=== PATIENT | male | born 1985 | race Caucasian/White ===

== ENCOUNTER 2016-08-17 14:57 | Inpatient (IN) | payer OTHER ==
[~2016-08-17] VITALS: Ht 185.4 cm; Wt 78.9 kg
[2016-08-17 19:35] VITALS: BP 92/60
[2016-08-17] MEDS ORDERED: oxyCODONE/APAP 7.5-325 MG (PERCOCET 7.5) TABLET ONE (20:24)
[2016-08-17] MEDS: SENNA W/DOCUSATE (SENOKOT S) TABLET PO SCH (20:30)
[2016-08-17] MEDS: oxyCODONE/APAP 7.5-325 MG (PERCOCET 7.5) TABLET PO PRN (20:30)
[2016-08-17] MEDS ORDERED: ONDANSETRON 4 MG/2 ML (SDV) Z0FRAN IVP PRN (23:30)
[2016-08-17] MEDS ORDERED: ACETAMINOPHEN 325 MG TABLET/CAPLET (TYLENOL) PO PRN (23:30)
[2016-08-17] MEDS ORDERED: BISACODYL 10 MG SUPP (DULCOLAX) PR PRN (23:30)
[2016-08-18] MEDS: oxyCODONE/APAP 7.5-325 MG (PERCOCET 7.5) TABLET PO PRN ×6 (00:42→22:37)
[2016-08-18] MEDS: LORazepam 0.5 MG (ATIVAN) TABLET PO PRN ×2 (03:47→14:00)
[2016-08-18 05:18] VITALS: BP 101/65
[2016-08-18] MEDS: PANTOPRAZOLE 40 MG (PROTONIX) TAB PO SCH (06:03)
[2016-08-18 06:20] LABS: MEAN CORPUSCULAR HEMOGLOBIN 31 PG (25-34); MEAN CORPUSCULAR HGB CONC 34 G/DL (32-36); MEAN CORPUSCULAR VOLUME 90 FL (80-99); RED BLOOD COUNT 3.74 10^6/uL (4.35-5.85); RED CELL DISTRIBUTION WIDTH 11.6 % (10.0-14.5); WHITE BLOOD COUNT 6.2 10^3/uL (4.3-11.0)
[2016-08-18 06:21] LABS: BASOPHILS % (AUTO) 0 % (0-10); EOSINOPHILS # (AUTO) 0.1 10^3/uL (0.0-0.3); EOSINOPHILS % (AUTO) 2 % (0-10); LYMPHOCYTES # (AUTO) 1.9 X 10^3 (1.0-4.0); LYMPHOCYTES % (AUTO) 31 % (12-44); MEAN PLATELET VOLUME 9.4 FL (7.4-10.4); MONOCYTES # (AUTO) 0.6 X 10^3 (0.0-1.0); MONOCYTES % (AUTO) 10 % (0-12); NEUTROPHILS # (AUTO) 3.5 X 10^3 (1.8-7.8); NEUTROPHILS % (AUTO) 57 % (42-75); PLATELET COUNT 390 10^3/uL (130-400)
[2016-08-18 07:00] LABS: ALANINE AMINOTRANSFERASE 44 U/L (0-55); ALBUMIN 3.3 G/DL (3.2-4.5); ANION GAP 7 MMOL/L (5-14); ASPARTATE AMINO TRANSFERASE 23 U/L (5-34); BILIRUBIN,TOTAL 0.4 MG/DL (0.1-1.0); BLOOD UREA NITROGEN 16 MG/DL (7-18); BUN/CREATININE RATIO 21; CALCIUM 9.2 MG/DL (8.5-10.1); CARBON DIOXIDE 28 MMOL/L (21-32); CHLORIDE 102 MMOL/L (98-107); CREATININE SERUM 0.76 MG/DL (0.60-1.30); GFR ESTIMATED > 60; GLUCOSE 90 MG/DL (70-105); POTASSIUM 4.1 MMOL/L (3.6-5.0); SODIUM 137 MMOL/L (135-145); TOTAL PROTEIN 5.8 G/DL (6.4-8.2)
[2016-08-18 07:52] LABS: BAND NEUTROPHILS 0 %; BASOPHILS % (MANUAL) 0 %; EOSINOPHILS % (MANUAL) 5 %; LYMPHOCYTES % (MANUAL) 33 %; NEUTROPHILS % (MANUAL) 57 %
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
[2016-08-18] MEDS ORDERED: ONDANSETRON 4 MG (ZOFRAN) ORAL DISSOLVE TAB PO PRN (11:00)
--- NOTE | 2016-08-18 11:12 | Occupational Ther Daily Note ---
OT Current Status-Daily Note Subjective Pt. reports that he is trying to relax. States, "I didn't sleep last night." Appearance Pt. declines out of bed activity, but agrees to education regarding back safety. Mental Status/Objective Patient Orientation: Person Functional [place] Measure 0=Not Assessed/NA 4=Minimal Assistance 1=Total Assistance 5=Supervision or Setup 2=Maximal Assistance 6=Modified [place] 3=Moderate Assistance 7=Complete [place] ADL-Treatment Functional [place] Measure 0=Not Assessed/NA 4=Minimal Assistance 1=Total Assistance 5=Supervision or Setup 2=Maximal Assistance 6=Modified [place] 3=Moderate Assistance 7=Complete IndependenceIRFPAI Quality Coding Scale 6 Independent with activity with or without an assistive device 5 Patient requires set up or clean up by helper. Patient completes activity by themselves 4 Supervision or touching assist (CGA). [place] provide cues , steadying assist 3 The helper provides less than half the effort to complete the activity 2 The helper provides more than half the effort to complete the activity 1 Dependent. The helper does all the effort to complete an activity 7 Patient refused to complete or attempt activity 9 The patient did not perform the activity before the current illness or injury 88 Not attempted due to Medical conditions or safety concerns Other Treatment Pt. asleep when OT came in room. OT wakes pt. up. Pt. declines getting up, but states that OT can give him information regarding back precautions and home safety. OT begins to educate pt on do's and don't's after back surgery. Pt. falls asleep several times more, with OT waking him up. Pt. apologizes, and states again that he just didn't get any sleep last night. Spoke with nursing about possible sleeping pill at bedtime to help him sleep, so that he can participate more. Nursing states that pt. was given an ativan, and this made him sleep. She states that he slept through nursing being in room, and did not wake up to ask for more pain medication until this morning. Pt. has been educated on importance of being able to participate in therapy. Education OT Patient Education: Correct positioning, Modified ADL techniques, Progress toward Goal/Update tx plan, Purpose of tx/functional activities, Reviewed precautions, Rehab process Teaching Recipient: Patient Teaching Methods: Demonstration, Discussion Response to Teaching: Verbalize Understanding, Return Demonstration OT Short Term Goals Short Term Goals Time Frame: August 25, 2016 Eating(FIM): 7 Grooming(FIM): 6 Bathing(FIM): 5 Upper Body Dressing(FIM): 6 Lower Body Dressing(FIM): 5 Toileting(FIM): 5 Transfers (B,C,W/C) (FIM): 5 Toilet/Commode Transfer(FIM): 5 Shower Transfer(FIM): 4 Additional Short Term Goals: 1-Demonstrate ADL Tasks, 2-Verbalize Understanding , 3-ImproveStrength/Shaan 1=Demonstrate adherence to instructed precautions during ADL tasks. 2=Patient will verbalize/demonstrate understanding of assistive devices/ modifications for ADL. 3=Patient will improve strength/tolerance for activity to enable patient to perform ADL's. OT [facility]ci Goals Environmental Tech Goals Time Frame: September 01, 2016 Eating (FIM): 7 Eating (QC): 6 Groomin Oral Hygiene (QC): 6 Bathing(FIM): 6 Shower/Bathe Self (QC): 6 Upper Body Dressing(FIM): 6 Upper Body Dressing (QC): 6 Lower Body Dressing(FIM): 6 Lower Body Dressing (QC): 6 On/Off Footwear (QC): 6 Toileting(FIM): 6 Toileting Hygiene (QC): 6 Transfers (B,C,W/C) (FIM): 6 Toilet/Commode Transfer(FIM): 6 Toilet/Commode Transfer (QC): 6 Shower Transfer(FIM): 5 Additional Goals: 1-Demonstrate ADL Tasks, 2-Verbalize Understanding, 3- ImproveStrength/Shaan 1=Demonstrate adherence to instructed precautions during ADL tasks. 2=Patient will verbalize/demonstrate understanding of assistive devices/ modifications for ADL. 3=Patient will improve strength/tolerance for activity to enable patient to perform ADL's. OT Education/Plan Problem List/Assessment Assessment: Decreased Activ Tolerance, Decreased UE Strength, Dependent Transfers, Impaired Coordination, Impaired Funct Balance, Impaired I ADL's, Impaired Self-Care Skills Discharge Recommendations Plan/Recommendations: Continue POC Therapy D/C Recommendations: Home w/ Family Support, Occupational Therapy Home Care Equpiment Recommendations-D/C: Hip Kit Treatment Plan/Plan of Care Treatment,Training & Education: Yes Patient would benefit from OT for education, treatment and training to promote independence in ADL's, mobility, safety and/or upper extremity function for ADL' s. Plan of Care: ADL Retraining, Functional Mobility, Group Exercise/Act as Ind, UE Funct Exercise/Act Treatment Duration: September 01, 2016 Visits Per Week: 10-12 Agreement: Yes Rehab Potential: Fair Time/GCodes Start Time: 10:35 Stop Time: 10:45 Total Time Billed (hr/min): 10 Billed Treatment Time 1, MILANA EVANGELISTA OT August 18, 2016 11:12
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
--- NOTE | 2016-08-18 14:41 | Occ Therapy Progress Note ---
Therapy Progress Note OT went into pt's room, for scheduled therapy. OT educated pt. on use of adaptive equipment. Pt. verbalizes understanding. OT lets pt. know it is time to practice doffing/donning sock with equipment. Pt. declines out of bed. States, "I just got my pain pill, and I have food coming." OT asks pt. purpose of not wanting to get out of bed when he has just had a pain pill, which is when his pain should be best controlled. Pt. states, "because if I start to hurt, then it will be another 4 hours until I can get my next one." OT asks when his ideal time would be for therapies. Pt. states that he would like to have all therapies, and then to have his pain medication. Pt. is reminded that this morning, he was in so much pain that he could not participate, and that when OT came back for the second time, he had had his pain medication and was too groggy, and could not stay awake for therapy. OT states again that it is very important for him to be able to participate in therapy, and that if he refuses now, he wont get all of his therapy. Pt. states that this is okay. Spoke with rehab coordinator regarding this. Pt. is not able to participate in therapy due to pain before his scheduled pain pill, and does not want to participate after his pain pill due to possible pain. [id number], MILANA MONREAL OT August 18, 2016 14:41
[2016-08-18 20:00] VITALS: BP 111/68
[2016-08-18] MEDS: SENNA W/DOCUSATE (SENOKOT S) TABLET PO SCH (20:10)
[2016-08-19] MEDS: oxyCODONE/APAP 7.5-325 MG (PERCOCET 7.5) TABLET PO PRN ×5 (02:37→21:38)
[2016-08-19 05:00] VITALS: BP 125/66
[2016-08-19] MEDS: PANTOPRAZOLE 40 MG (PROTONIX) TAB PO SCH (06:46)
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
--- NOTE | 2016-08-19 09:01 | Physical Therapy Daily Note ---
PT Daily Note-Current Subjective Patient in bed pre tx, ordering breakfast, agrees to PT, has pain of 4/10, he states it has been more controlled recently. Appearance Patient in shower chair in shower room post tx with OT. Mental Status Patient Orientation: Normal For Age CAM boot, TLSO Transfers Functional [place] Measure 0=Not Assessed/NA 4=Minimal Assistance 1=Total Assistance 5=Supervision or Setup 2=Maximal Assistance 6=Modified [place] 3=Moderate Assistance 7=Complete IndependenceIRFPAI Quality Coding Scale 6 Independent with activity with or without an assistive device 5 Patient requires set up or clean up by helper. Patient completes activity by themselves 4 Supervision or touching assist (CGA). [place] provide cues , steadying assist 3 The helper provides less than half the effort to complete the activity 2 The helper provides more than half the effort to complete the activity 1 Dependent. The helper does all the effort to complete an activity 7 Patient refused to complete or attempt activity 9 The patient did not perform the activity before the current illness or injury 88 Not attempted due to Medical conditions or safety concerns Transfers (B, C, W/C) (FIM): 5 Scootin Supine to/from Sit: 6 Sit to/from Stand: 5 still occasionally bears weight through his right arm Weight Bearing Weight Bearing Restriction: Non Weight Bearing Location Restriction: R LE, R UE Gait Training Gait (FIM): 5 Distance: 250', 150' Gait Level of Assist: 5 Gait Persons Needed: 1 Gait Assistive Device: Walker Platform patient still appears to bear weight through his right leg but states that he is not, slow, antalgic Exercises Seated Therapy Exercises: Ankle pumps, Hip flexion Seated Reps: 20 Standing: Hamstring curls, 3 way Ex=Flex, Abd, Ext toe touches with right LE, LAQ alternating for 5 min NuStep Minutes: 10 NuStep Workload: 3 Treatments bed mobility and transfers, ambulation, functional strengthening, patient was put in shower room post tx for OT, TLSO and CAM boot removed for shower and OT will cover appropriate places with plastic. Assessment Current Status: Fair Progress improving transfers and endurance PT Short Term Goals Short Term Goals Time Frame: August 25, 2016 Transfers (B,C,W/C) (FIM): 5 Gait (FIM): 5 Gait Distance Comment: 150' Gait Level of Assist: 5 Gait Assistive Device: Walker Platform Wheelchair Distance: 150' PT Placement Coordinator Goals [facility] Goals PT [facility] Goals Time Frame: September 08, 2016 Transfers (B,C,W/C) (FIM): 6 Sit to Lying (QC): 6 Lying-Sitting on Side/Bed(QC): 6 Sit to Stand (QC): 6 Rollin Roll Left to Right (QC): 6 Chair/Cjw-zx-Iyfmv Xfer(QC): 6 Car Transfer (QC): 4 Does the Patient Walk: Yes Gait (FIM): 6 Distance: 200' Walk 10 feet (QC): 6 Walk 10ft-Uneven Surface(QC): 6 Walk 50ft with 2 Turns (QC): 6 Walk 150 ft (QC): 6 Gait Assistive Device: Walker Platform Wheelchair (FIM): 6 Distance: 200' Wheelchair Level of Assist: 6 Wheel 50 feet with 2 turns (QC: 6 Stairs (FIM): 1 # of Steps: 1 1 Step (curb) (QC): 4 Stairs Level Of Assist: 5 PT Plan Problem List Problem List: Activity Tolerance, Functional Strength, Safety, Balance, Gait, Transfer Treatment/Plan Treatment Plan: Continue Plan of Care Treatment Plan: Bed Mobility, Education, Functional Activity Shaan, Functional Strength, Group Therapy, Gait, Safety, Therapeutic Exercise, Transfers Treatment Duration: September 08, 2016 Visits Per Week: 10-11 Minutes/Day (M-F): 60-90 Minutes/Day (Sat/Arriola): 15-30 Safety Risks/Education Patient Education: Gait Training, Transfer Techniques, Correct Positioning, Safety Issues Teaching Recipient: Patient Teaching Methods: Demonstration, Discussion Response to Teaching: Reinforcement Needed Time/GCodes Time In: 800 Time Out: 900 Total Billed Treatment Time: 60 Total Billed Treatment 1 visit GT 30' EX 20' FA 10' ML MCCLELLAND PT August 19, 2016 09:01
[2016-08-19] MEDS: LORazepam 0.5 MG (ATIVAN) TABLET PO PRN (09:50)
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
--- NOTE | 2016-08-19 15:26 | Therapy Group Daily Note ---
Therapy Daily Group Note Exercises LE Standing Exercise, Sit to/from Stand, UE Exercise Other/Notes Pt ambulated to OT/PT group with CGA using FWW. Group consisted of introductions , socialization, group discussions and working together, 'Family Feud" style activity, UE/LE seated exercises and inspirational words for other pt's. Pt contributed to discussions, had pertinent answers to questions. Pt was able to completed seat LE/UE exercises and fine motor skills, tolerated well. Pt required to standing in place to alleviate pain. Pt ambulated with CGA using FWW to room. After therapy, lying in bed with call light/phone in reach. Visitor present in room. All needs met in room. Start Time: 13:00 Stop Time: 14:15 Total Billed Treatment Time: 75 Total Billed Treatment 1-GRP AKBAR FRITZ August 19, 2016 15:26
[2016-08-19 18:35] VITALS: BP 112/71
[2016-08-19] MEDS: SENNA W/DOCUSATE (SENOKOT S) TABLET PO SCH (21:38)
[2016-08-20] MEDS: oxyCODONE/APAP 7.5-325 MG (PERCOCET 7.5) TABLET PO PRN ×5 (01:48→20:11)
[2016-08-20 05:00] VITALS: BP 100/59
[2016-08-20] MEDS: PANTOPRAZOLE 40 MG (PROTONIX) TAB PO SCH (06:39)
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
[2016-08-20] MEDS: NICOTINE 14 MG (NICODERM) PATCH TD SCH (09:53)
--- NOTE | 2016-08-20 11:05 | Occupational Ther Daily Note ---
OT Current Status-Daily Note Subjective Pt alert, lying in bed. Pt c/o ankle throbbing, nrsg notified. Pt agreed to therapy. Mental Status/Objective Patient Orientation: Person, Place, Time, Situation Functional [place] Measure 0=Not Assessed/NA 4=Minimal Assistance 1=Total Assistance 5=Supervision or Setup 2=Maximal Assistance 6=Modified [place] 3=Moderate Assistance 7=Complete [place] ADL-Treatment Functional [place] Measure 0=Not Assessed/NA 4=Minimal Assistance 1=Total Assistance 5=Supervision or Setup 2=Maximal Assistance 6=Modified [place] 3=Moderate Assistance 7=Complete IndependenceIRFPAI Quality Coding Scale 6 Independent with activity with or without an assistive device 5 Patient requires set up or clean up by helper. Patient completes activity by themselves 4 Supervision or touching assist (CGA). [place] provide cues , steadying assist 3 The helper provides less than half the effort to complete the activity 2 The helper provides more than half the effort to complete the activity 1 Dependent. The helper does all the effort to complete an activity 7 Patient refused to complete or attempt activity 9 The patient did not perform the activity before the current illness or injury 88 Not attempted due to Medical conditions or safety concerns Bathing (FIM): 4 (Using shower chair with cutout, grabbar and hand held shower pt was able to bath all except for L UE. Pt has brace on R LE and cast on R UE. ) Bathing Location: L Arm, R Arm, L Upper Leg, R Upper Leg, L Lower Leg ( including foot), Chest, Abdomen, Buttocks, Perineal Area Upper Body (FIM): 4 (After set up, pt is able to don/doff shirt with min A to thread R UE into shirt due to cast.) Lower Body Dressing (FIM): 4 (Min A to thread R LE into pants due to brace then CGA while pt hiked pants over hips.) Transfers (B, C, W/C) (FIM): 4 (CGA for safety when stand pivot transferring.) Shower Transfer(FIM): 4 (Using grabbar and shower chair pt is able to complete transfer with CGA.) OT Short Term Goals Short Term Goals Time Frame: August 25, 2016 Eating(FIM): 7 Grooming(FIM): 6 Bathing(FIM): 5 Upper Body Dressing(FIM): 6 Lower Body Dressing(FIM): 5 Toileting(FIM): 5 Transfers (B,C,W/C) (FIM): 5 Toilet/Commode Transfer(FIM): 5 Shower Transfer(FIM): 4 Additional Short Term Goals: 1-Demonstrate ADL Tasks, 2-Verbalize Understanding , 3-ImproveStrength/Shaan 1=Demonstrate adherence to instructed precautions during ADL tasks. 2=Patient will verbalize/demonstrate understanding of assistive devices/ modifications for ADL. 3=Patient will improve strength/tolerance for activity to enable patient to perform ADL's. OT Ct Tech Goals Ct Tech Goals Time Frame: September 01, 2016 Eating (FIM): 7 Eating (QC): 6 Groomin Oral Hygiene (QC): 6 Bathing(FIM): 6 Shower/Bathe Self (QC): 6 Upper Body Dressing(FIM): 6 Upper Body Dressing (QC): 6 Lower Body Dressing(FIM): 6 Lower Body Dressing (QC): 6 On/Off Footwear (QC): 6 Toileting(FIM): 6 Toileting Hygiene (QC): 6 Transfers (B,C,W/C) (FIM): 6 Toilet/Commode Transfer(FIM): 6 Toilet/Commode Transfer (QC): 6 Shower Transfer(FIM): 5 Additional Goals: 1-Demonstrate ADL Tasks, 2-Verbalize Understanding, 3- ImproveStrength/Shaan 1=Demonstrate adherence to instructed precautions during ADL tasks. 2=Patient will verbalize/demonstrate understanding of assistive devices/ modifications for ADL. 3=Patient will improve strength/tolerance for activity to enable patient to perform ADL's. OT Education/Plan Discharge Recommendations Plan/Recommendations: Continue POC Treatment Plan/Plan of Care Patient would benefit from OT for education, treatment and training to promote independence in ADL's, mobility, safety and/or upper extremity function for ADL' s. Plan of Care: ADL Retraining, Functional Mobility, Group Exercise/Act as Ind, UE Funct Exercise/Act Treatment Duration: September 01, 2016 Visits Per Week: 10-12 Agreement: Yes Rehab Potential: Fair Time/GCodes Start Time: 10:00 Stop Time: 11:00 Total Time Billed (hr/min): 60 Billed Treatment Time 1 visit-ADL 4 (60 min) AKBAR FRITZ August 20, 2016 11:05
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
--- NOTE | 2016-08-20 13:48 | Therapy Group Daily Note ---
Therapy Daily Group Note Exercises Fine Motor Other/Notes Pt transported to OT/PT lunch group via w/c. Lunch group consisted of socialization, recalling local history per patients, fine motor and UE skills for eating lunch. Pt was able to answer questions about own family history and interact with other patients. Pt was able to open containers/packages by self then use regular utensils to feed self. Pt did have pain/discomfort during group. Pt requested to use bathroom and fix shirt under back brace then came back to group. Pt was able to complete toileting with supervision. After group , pt lying in bed with call light/phone in reach. All needs met in room. Start Time: 12:00 Stop Time: 13:15 Total Billed Treatment Time: 75 Total Billed Treatment 1-AKBAR TAYLOR August 20, 2016 13:48
[2016-08-20] MEDS: MILK OF MAGNESIA 400 MG/5 ML 30 ML UDC PO PRN (17:13)
[2016-08-20 18:18] VITALS: BP 114/67
[2016-08-20] MEDS: SENNA W/DOCUSATE (SENOKOT S) TABLET PO SCH (20:11)
[2016-08-21] MEDS: oxyCODONE/APAP 7.5-325 MG (PERCOCET 7.5) TABLET PO PRN ×6 (00:43→23:21)
[2016-08-21 05:32] VITALS: BP 111/68
[2016-08-21] MEDS: PANTOPRAZOLE 40 MG (PROTONIX) TAB PO SCH (06:11)
[2016-08-21] MEDS: NICOTINE 14 MG (NICODERM) PATCH TD SCH (08:18)
[2016-08-21] MEDS: PATCH REMOVAL TP SCH (08:19)
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
--- NOTE | 2016-08-21 13:30 | Physical Therapy Progress Note ---
Therapy Progress Note Attmpted PT visit at 1040 am. Pt kept eyes closed and said he had already been up today with OT. Reported he hurt too bad to participate. Adam[place] refused to participate. AKBAR JEFFREY PT August 21, 2016 13:30
[2016-08-21] MEDS: LORazepam 0.5 MG (ATIVAN) TABLET PO PRN ×2 (16:20→23:21)
[2016-08-21 18:40] VITALS: BP 95/54
[2016-08-21] MEDS: SENNA W/DOCUSATE (SENOKOT S) TABLET PO SCH (21:01)
[2016-08-22] MEDS: oxyCODONE/APAP 7.5-325 MG (PERCOCET 7.5) TABLET PO PRN ×5 (04:00→22:18)
[2016-08-22 05:48] VITALS: BP 97/59
[2016-08-22] MEDS: LORazepam 0.5 MG (ATIVAN) TABLET PO PRN ×2 (07:40→13:26)
[2016-08-22] MEDS: PANTOPRAZOLE 40 MG (PROTONIX) TAB PO SCH (07:42)
[2016-08-22] MEDS: PATCH REMOVAL TP SCH (08:16)
[2016-08-22] MEDS: NICOTINE 14 MG (NICODERM) PATCH TD SCH (08:16)
[2016-08-22] MEDS ORDERED: NYSTATIN ORAL SUSP 5 ML UDC PO SCH (14:00)
[2016-08-22] MEDS ORDERED: fluCOnazole (DIFLUCAN) 10MG/ML 35ML BTL PO SCH (14:06)
[2016-08-22 18:04] VITALS: BP 96/57
[2016-08-22] MEDS: MILK OF MAGNESIA 400 MG/5 ML 30 ML UDC PO PRN (18:18)
[2016-08-22] MEDS: SENNA W/DOCUSATE (SENOKOT S) TABLET PO SCH (21:07)
[2016-08-23] MEDS: oxyCODONE/APAP 7.5-325 MG (PERCOCET 7.5) TABLET PO PRN ×2 (02:18→06:20)
[2016-08-23] MEDS: PANTOPRAZOLE 40 MG (PROTONIX) TAB PO SCH (06:20)
[2016-08-23 06:40] VITALS: BP 89/45
[2016-08-23] MEDS: NICOTINE 14 MG (NICODERM) PATCH TD SCH (08:05)
[2016-08-23] MEDS: PATCH REMOVAL TP SCH (08:06)
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
--- NOTE | 2016-08-23 10:50 | Physical Therapy Daily Note ---
PT Daily Note-Current Subjective Patient in bed pre tx, agrees to PT, has 7/10 pain. Patient has questions about his discharge planning, this therapist alerted the long term care social worker so she can go talk to him. Appearance Patient in bed post tx with nurse call, phone, tray, all needs met. Mental Status Patient Orientation: Normal For Age TLSO, CAM boot Transfers Functional [place] Measure 0=Not Assessed/NA 4=Minimal Assistance 1=Total Assistance 5=Supervision or Setup 2=Maximal Assistance 6=Modified [place] 3=Moderate Assistance 7=Complete IndependenceIRFPAI Quality Coding Scale 6 Independent with activity with or without an assistive device 5 Patient requires set up or clean up by helper. Patient completes activity by themselves 4 Supervision or touching assist (CGA). [place] provide cues , steadying assist 3 The helper provides less than half the effort to complete the activity 2 The helper provides more than half the effort to complete the activity 1 Dependent. The helper does all the effort to complete an activity 7 Patient refused to complete or attempt activity 9 The patient did not perform the activity before the current illness or injury 88 Not attempted due to Medical conditions or safety concerns Transfers (B, C, W/C) (FIM): 6 Scootin Rollin Roll Left to Right (QC): 6 Supine to/from Sit: 6 Sit to/from Stand: 6 Sit to Lying (QC): 6 Sit to Stand (QC): 6 Chair/Euv-ix-Hsqwu Xfer(QC): 6 Bed to/from Chair: 6 Gait Training Gait (FIM): 6 Distance: 500'x2, 150'x2 Walk 10 feet (QC): 6 Walk 50 ft with 2 Turns(QC): 6 Walk 150 ft (QC): 6 Walking 10ft/uneven surface-QC: 6 Gait Assistive Device: Walker Platform Patient can ambulate 500' with a platform walker with mod I over community surfaces, including 50' with at least 2 turns of 90 degrees, and 10' over an uneven surface (slopes, cracks in sidewalks, carpet, etc) Wheelchair Training Does the Pt Use a Wheelchair?: No Stair Training Stair Training: Handrails/: uses walker Stairs (FIM): 1 #of Steps: 1 1 Step (curb) (QC): 6 4 Steps (QC): 88 12 Steps (QC): 88 Stairs: Pattern: Hops Level of Assist: 6 Patient can go up and down 1 step using a platform walker with mod I. More steps are not safe to perform at this time because he is NWB on the right wrist and leg. Balance Picking up an Object (QC): 88 Exercises Standing: Hamstring curls, 3 way Ex=Flex, Abd, Ext, Marching Standing Reps: 20 LAQ alternating for 3 min Treatments ambulation, bed mobility and transfers, functional strengthening, patient also toileted for a BM with mod I Assessment Current Status: Fair Progress Patient is mod I with all mobility using a platform walker, he seems to occasionally not comply with his weight bearing status but he states that he is always compliant. Patient voices desire to discharge home [facility], and as far as mobility he is ready. Patient refused the last 10 min of his treatment due to pain, which increased steadily during treatment, he states it is about time for him to have his pain meds again. PT Short Term Goals Short Term Goals Time Frame: August 25, 2016 Transfers (B,C,W/C) (FIM): 5 Gait (FIM): 5 Gait Distance Comment: 150' Gait Level of Assist: 5 Gait Assistive Device: Walker Platform Wheelchair Distance: 150' PT Supervisor Plasma Goals Supervisor Plasma Goals PT Supervisor Plasma Goals Time Frame: September 08, 2016 Transfers (B,C,W/C) (FIM): 6 (met) Sit to Lying (QC): 6 (met) Lying-Sitting on Side/Bed(QC): 6 (met) Sit to Stand (QC): 6 (met) Rollin (met) Roll Left to Right (QC): 6 (met) Chair/Sei-kl-Kexwl Xfer(QC): 6 (met) Car Transfer (QC): 4 Does the Patient Walk: Yes Gait (FIM): 6 (met) Distance: 200' Walk 10 feet (QC): 6 (met) Walk 10ft-Uneven Surface(QC): 6 (met) Walk 50ft with 2 Turns (QC): 6 (met) Walk 150 ft (QC): 6 (met) Gait Assistive Device: Walker Platform Wheelchair (FIM): 6 Distance: 200' Wheelchair Level of Assist: 6 Wheel 50 feet with 2 turns (QC: 6 Stairs (FIM): 1 # of Steps: 1 1 Step (curb) (QC): 4 Stairs Level Of Assist: 5 PT Plan Problem List Problem List: Activity Tolerance, Functional Strength, Safety, Balance, Gait, Transfer Treatment/Plan Treatment Plan: Continue Plan of Care Treatment Plan: Bed Mobility, Education, Functional Activity Shaan, Functional Strength, Group Therapy, Gait, Safety, Therapeutic Exercise, Transfers Treatment Duration: September 08, 2016 Visits Per Week: 10-11 Minutes/Day (M-F): 60-90 Minutes/Day (Sat/Arriola): 15-30 Safety Risks/Education Patient Education: Gait Training, Transfer Techniques, Steps, Correct Positioning, Safety Issues Teaching Recipient: Patient Teaching Methods: Demonstration, Discussion Response to Teaching: Reinforcement Needed Time/GCodes Time In: 1000 Time Out: 1050 Total Billed Treatment Time: 50 Total Billed Treatment 1 visit EX 15' FA 10' GT 25' ML MCCLELLAND PT August 23, 2016 10:50
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
[2016-08-23] MEDS ORDERED: oxyCODONE/APAP 7.5-325 MG (PERCOCET 7.5) TABLET PO PRN (12:24)
[2016-08-23] MEDS ORDERED: LORazepam 0.5 MG (ATIVAN) TABLET PO PRN (12:24)
--- NOTE | 2016-08-23 13:43 | Occupational Ther Daily Note ---
OT Current Status-Daily Note Subjective Pt alert, lying in bed. Pt agreed to therapy. Pt told nurse tech that he wanted to wait on his pain meds until after his shower. Pt to discharge today. Mental Status/Objective Patient Orientation: Person, Place, Time, Situation Functional [place] Measure 0=Not Assessed/NA 4=Minimal Assistance 1=Total Assistance 5=Supervision or Setup 2=Maximal Assistance 6=Modified [place] 3=Moderate Assistance 7=Complete [place] ADL-Treatment Functional [place] Measure 0=Not Assessed/NA 4=Minimal Assistance 1=Total Assistance 5=Supervision or Setup 2=Maximal Assistance 6=Modified [place] 3=Moderate Assistance 7=Complete IndependenceIRFPAI Quality Coding Scale 6 Independent with activity with or without an assistive device 5 Patient requires set up or clean up by helper. Patient completes activity by themselves 4 Supervision or touching assist (CGA). [place] provide cues , steadying assist 3 The helper provides less than half the effort to complete the activity 2 The helper provides more than half the effort to complete the activity 1 Dependent. The helper does all the effort to complete an activity 7 Patient refused to complete or attempt activity 9 The patient did not perform the activity before the current illness or injury 88 Not attempted due to Medical conditions or safety concerns Eating (FIM): 7 (Pt able to open containers/packages and feed self with regular utensils.) Eating (QC): 6 (Pt able to open containers/packages and feed self with regular utensils.) Grooming (FIM): 7 (Pt able to complete own grooming.) Oral Hygiene (QC): 6 (Pt able to complete own oral care.) Bathing (FIM): 6 (Using shower bench, grabbars, hand held shower and long handle sponge, pt is able to complete own bathing.) Shower/Bathe Self (QC): 6 (Using shower bench, grabbars, hand held shower and long handle sponge, pt is able to complete own bathing.) Upper Body (FIM): 5 (After set up, pt is able to complete donning/doffing upper body clothing.) Upper Body Dressing (QC): 5 (After set up, pt is able to complete donning/ doffing upper body clothing.) Lower Body Dressing (FIM): 4 (After set up, pt is able to complete donning/ doffing lower body clothing. Pt is able to don/doff socks by self. Pt requires assistance to don/doff shoe by self. Elastic shoe laces in shoe.) Lower Body Dressing (QC): 3 (After set up, pt is able to complete donning/ doffing lower body clothing. Pt is able to don/doff socks by self. Pt requires assistance to don/doff shoe by self. Elastic shoe laces in shoe.) On/Off Footwear (QC): 3 (Pt able to don/doff sock by self. Pt requires assistance to don/doff shoe by self. Elastic shoe laces in shoe.) Toileting (FIM): 6 (Using FWW when standing, pt is able to manipulate his clothing and cleanse self.) Toileting Hygiene (QC): 6 (Using FWW when standing, pt is able to manipulate his clothing and cleanse self.) Transfers (B, C, W/C) (FIM): 6 (Using FWW, pt is able to complete transfers.) Toilet/Commode Transfer (FIM): 6 (Using FWW, pt is able to complete own transfers.) Toilet Transfer (QC): 6 (Using FWW, pt is able to complete transfer.) Shower Transfer(FIM): 6 (Using FWW, grabbars and shower bench, pt is able to complete transfer.) Pt demonstrated ability to ambulate through doorways, open doors and reach to grasp or push items without LOB. After therapy, pt lying in bed with call light /phone in reach. All needs met in room. OT Short Term Goals Short Term Goals Time Frame: August 25, 2016 Eating(FIM): 7 Grooming(FIM): 6 Bathing(FIM): 5 Upper Body Dressing(FIM): 6 Lower Body Dressing(FIM): 5 Toileting(FIM): 5 Transfers (B,C,W/C) (FIM): 5 Toilet/Commode Transfer(FIM): 5 Shower Transfer(FIM): 4 Additional Short Term Goals: 1-Demonstrate ADL Tasks, 2-Verbalize Understanding , 3-ImproveStrength/Shaan 1=Demonstrate adherence to instructed precautions during ADL tasks. 2=Patient will verbalize/demonstrate understanding of assistive devices/ modifications for ADL. 3=Patient will improve strength/tolerance for activity to enable patient to perform ADL's. OT [facility] Goals [facility] Goals Time Frame: September 01, 2016 Eating (FIM): 7 (met-08/23/16) Eating (QC): 6 (met-08/23/16) Groomin (met-08/23/16) Oral Hygiene (QC): 6 (met-08/23/16) Bathing(FIM): 6 (met-08/23/16) Shower/Bathe Self (QC): 6 (met-08/23/16) Upper Body Dressing(FIM): 6 (not met) Upper Body Dressing (QC): 6 (not met) Lower Body Dressing(FIM): 6 (not met) Lower Body Dressing (QC): 6 (not met) On/Off Footwear (QC): 6 (not met) Toileting(FIM): 6 (met-08/23/16) Toileting Hygiene (QC): 6 (met-08/23/16) Transfers (B,C,W/C) (FIM): 6 (met-08/23/16) Toilet/Commode Transfer(FIM): 6 (met-08/23/16) Toilet/Commode Transfer (QC): 6 (met-08/23/16) Shower Transfer(FIM): 5 (met-08/23/16) Additional Goals: 1-Demonstrate ADL Tasks, 2-Verbalize Understanding, 3- ImproveStrength/Shaan 1=Demonstrate adherence to instructed precautions during ADL tasks. 2=Patient will verbalize/demonstrate understanding of assistive devices/ modifications for ADL. 3=Patient will improve strength/tolerance for activity to enable patient to perform ADL's. OT Education/Plan Discharge Recommendations Plan/Recommendations: Continue POC Equpiment Recommendations-D/C: Rails on Tub/Shower, Bath Chair, Extended Shower Sprayer Treatment Plan/Plan of Care Patient would benefit from OT for education, treatment and training to promote independence in ADL's, mobility, safety and/or upper extremity function for ADL' s. Plan of Care: ADL Retraining, Functional Mobility, Group Exercise/Act as Ind, UE Funct Exercise/Act Treatment Duration: September 01, 2016 Visits Per Week: 10-12 Minutes/Day (M-F): 60-90 Minutes/Day (Sat/Arriola): 15-30 Agreement: Yes Rehab Potential: Fair Time/GCodes Start Time: 12:30 Stop Time: 13:30 Total Time Billed (hr/min): 60 Billed Treatment Time 1 visit-ADL 3 (45 min) FA 1 (15 min) AKBAR FRITZ August 23, 2016 13:43
[2016-08-23] MEDS ORDERED: NCT14P TD (14:01)
[2016-08-23] MEDS ORDERED: PANT40TA3 PO (14:01)
[2016-08-23] MEDS ORDERED: OXYC-464 PO (14:01)
[2016-08-23 17:53] VITALS: BP 99/64
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
[2016-08-23 19:09] VITALS: BP 99/64
--- NOTE | 2016-08-24 08:18 | Therapy Team Discharge Summary ---
Therapy Discharge Summary Discharge Recommendations Date of Discharge August 23, 2016 at 19:13 Therapy D/C Recommendations: Home w/ Family Support, Occupational Therapy Home Care Occupational Therapy Pt. seen by occupational therapy to increase overall strength and endurance with daily tasks. Pt. met all goals except dressing tasks, as he has back precautions and multiple braces. Pt. otherwise met transfer goals with Mod I. Pt. has discharged home with family support. At discharge, it was recommended that pt. have platform walker, wheelchair, and hip kit. Do recommend follow up occupational therapy in the home setting. PT [facility] Goals Cushion Former Goals PT [facility] Goals Time Frame: September 08, 2016 Transfers (B,C,W/C) (FIM): 6 (met) Roll Left to Right (QC): 6 (met) Sit to Lying (QC): 6 (met) Lying-Sitting on Side/Bed(QC): 6 (met) Sit to Stand (QC): 6 (met) Chair/Eha-ie-Fiviw Xfer(QC): 6 (met) Car Transfer (QC): 4 Does the Patient Walk: Yes Gait (FIM): 6 (met) Distance: 200' Walk 10 feet (QC): 6 (met) Walk 10ft-Uneven Surface(QC): 6 (met) Walk 50ft with 2 Turns (QC): 6 (met) Walk 150 ft (QC): 6 (met) Gait Assistive Device: Walker Platform Wheelchair (FIM): 6 Distance: 200' Wheelchair Level of Assist: 6 Wheel 50 feet with 2 turns (QC: 6 Stairs (FIM): 1 # of Steps: 1 1 Step (curb) (QC): 4 Stairs Level Of Assist: 5 OT [facility]sp Goals [facility] Goals Time Frame: September 01, 2016 Eating (FIM): 7 (met-08/23/16) Eating (QC): 6 (met-08/23/16) Oral Hygiene (QC): 6 (met-08/23/16) Grooming(FIM): 6 (met-08/23/16) Bathing(FIM): 6 (met-08/23/16) Shower/Bathe Self (QC): 6 (met-08/23/16) Upper Body Dressing(FIM): 6 (not met) Upper Body Dressing (QC): 6 (not met) Lower Body Dressing(FIM): 6 (not met) Lower Body Dressing (QC): 6 (not met) On/Off Footwear (QC): 6 (not met) Toileting(FIM): 6 (met-08/23/16) Toileting Hygiene (QC): 6 (met-08/23/16) Transfers (B,C,W/C) (FIM): 6 (met-08/23/16) Toilet/Commode Transfer(FIM): 6 (met-08/23/16) Toilet/Commode Transfer (QC): 6 (met-08/23/16) Shower Transfer(FIM): 5 (met-08/23/16) Additional Goals: 1-Demonstrate ADL Tasks, 2-Verbalize Understanding, 3- ImproveStrength/Shaan 1=Demonstrate adherence to instructed precautions during ADL tasks. 2=Patient will verbalize/demonstrate understanding of assistive devices/ modifications for ADL. 3=Patient will improve strength/tolerance for activity to enable patient to perform ADL's. MILANA GIBSON OT August 24, 2016 08:18
== END 2016-08-23 19:13 | disposition home or self-care (01) | DRG 561 ==
LOC: ENPENDDIS 08-23 15:00
PROVIDERS: ADMIT Family Medicine; ATTEND Physical Medicine & Rehabilitation
DX: S82.101D Unspecified fracture of upper end of right tibia, subsequent encounter for closed fracture with routine healing (principal); S92.251D Displaced fracture of navicular [scaphoid] of right foot, subsequent encounter for fracture with routine healing; F15.10 Other stimulant abuse, uncomplicated; F17.210 Nicotine dependence, cigarettes, uncomplicated; V29.40XD Motorcycle driver injured in collision with unspecified motor vehicles in traffic accident, subsequent encounter
CPT/HCPCS: 36415; 80053; 85007; 85027